=== PATIENT | male | born 1980 | race Caucasian/White ===

== ENCOUNTER 2017-04-08 10:39 | Emergency (ER) | payer BC ==
[~2017-04-08] VITALS: Ht 188 cm; Wt 162.7 kg
[~2017-04-08 10:39] MED LIST: IBUPROFEN800 MG PO; LISINOPRIL20 MG PO; NAPROXEN500 MG PO; TRAMADOL HCL50 MG PO
[2017-04-08 11:05] LABS: HEMATOCRIT 43.2 % (38.0-50.0); MCH 28.1 PG (29.0-34.0); MCHC 33.6 G/DL (30.0-36.0); MCV 83.7 FL (86-99); MEAN PLAT.VOLUME 9.3 uM^3 (9.0-12.4); PLATELET COUNT 350 K/uL (156-360); RBC DIS.WIDTH-CV 12.8 % (11.8-14.6); RBC DIS.WIDTH-SD 39.4 % (39-53); RED BLOOD COUNT 5.16 M/uL (4.00-5.50); WHITE BLOOD COUNT 17.1 K/uL (4.1-10.2)
[2017-04-08 11:16] LABS: CHLORIDE 100 mEq/L (99-109); POTASSIUM 3.8 mEq/L (3.7-5.4); SODIUM 133 mEq/L (136-147)
[2017-04-08 11:16] LABS: ADD MIUA? YES; BILIRUBIN NEGATIVE; BLOOD MODERATE; COLOR YELLOW ((YELLOW)); GLUCOSE (STRIP) 50; KETONES NEGATIVE; LEUKOCYTES NEGATIVE; NITRITE NEGATIVE; PROTEIN (STRIP) 30; UROBILINOGEN 0.2 MG/DL (0.2-1.0)
[2017-04-08 11:18] LABS: GLUCOSE 148 mg/dL (70-99)
[2017-04-08 11:20] LABS: ANION GAP 10 MEQ/L (2-14); TOTAL BILIRUBIN 0.6 mg/dL (0.0-1.0)
[2017-04-08 11:22] LABS: ALKALINE PHOSPHATASE 76 IU/L (3-129); GFR ESTIMATE (CALCULATED) > 59 mL/min/
[2017-04-08 11:23] LABS: BACTERIA RARE /HPF; EPITHELIAL CELLS RARE /HPF; MUCUS TRACE /LPF; UCUL ADDED? NO; WHITE BLOOD CELLS 0-5 /HPF (0-5)
[2017-04-08 11:23] LABS: UREA NITROGEN (BUN) 13 mg/dL (9-23)
[2017-04-08 11:48] LABS: LIPASE 12 U/L (1.0-51.0)
[2017-04-08 13:10] VITALS: BP 117/77
== END 2017-04-08 13:12 | disposition home or self-care (01) ==
LOC: EME 10:39
DX: J02.0 Streptococcal pharyngitis (principal); R10.32 Left lower quadrant pain; I10 Essential (primary) hypertension
CPT/HCPCS: 74176; 80053; 81003; 83690; 85027; 87651 90; 99281; 99285; J0561; J3010